=== PATIENT | male | born 1935 | race Caucasian/White ===

== ENCOUNTER 2023-06-30 10:26 | Outpatient (CLI) | payer MEDICARE, OTHER ==
[~2023-06-30 10:26] MED LIST: ASPI-611 PO; ATOR20TA66 PO; NAPR220C15 PO
== END 2023-06-30 23:59 | disposition home or self-care (01) ==
LOC: RAD 10:26
PROVIDERS: ATTEND Nurse Practitioner Primary Care
DX: M51.37 Other intervertebral disc degeneration, lumbosacral region (principal); M16.11 Unilateral primary osteoarthritis, right hip; I70.0 Atherosclerosis of aorta; M41.86 Other forms of scoliosis, lumbar region; M25.552 Pain in left hip; Z96.642 Presence of left artificial hip joint
CPT/HCPCS: 72100; 73502